=== PATIENT | female | born 1945 | race Hispanic/Latino ===

== ENCOUNTER 2018-11-21 07:57 | Day surgery (SDC) | payer OTHER ==
[~2018-11-21 07:57] MED LIST: SODIUM CHLORIDE 0.9% 1000ML 1,000 ML IV ONE
[2018-11-21] MEDS ORDERED: ROSU20TA31 PO (10:43)
[2018-11-21] MEDS ORDERED: LATA7.5D OP (10:43)
[2018-11-21] MEDS ORDERED: IPRA4AER IH (10:43)
[2018-11-21] MEDS ORDERED: LEVO100T12 PO (10:43)
[2018-11-21] MEDS ORDERED: LISI2.5T2 PO (10:43)
[2018-11-21] MEDS ORDERED: FLUT1BLS3 IH (10:43)
[2018-11-21] MEDS ORDERED: METF-446 PO (10:43)
[2018-11-21] MEDS ORDERED: LORA10CA9 PO (10:43)
[2018-11-21] MEDS ORDERED: CALC1TAB2 PO (10:43)
[2018-11-21] MEDS ORDERED: METO-408 PO (10:43)
[2018-11-21] MEDS ORDERED: PROPOFOL 10 MG/ML 20ML VIAL IV ONE (11:51)
[2018-11-21 12:12] VITALS: BP 91/41
[2018-11-21 12:17] VITALS: BP 110/58
[2018-11-21 12:22] VITALS: BP 108/58
[2018-11-21 12:27] VITALS: BP 112/58
[2018-11-21 12:32] VITALS: BP 135/70
--- NOTE | 2018-11-21 12:37 | NUR ---
dc pt dc home via wc, no distress noted. denies any pain or discomforts. accompanied by spouse
== END 2018-11-21 12:37 | disposition home or self-care (01) ==
LOC: ENDO 07:57 → DAH 07:57 → ENDO 12:37
PROVIDERS: ATTEND Internal Medicine
DX: D12.4 Benign neoplasm of descending colon (principal); D12.3 Benign neoplasm of transverse colon; K57.30 Diverticulosis of large intestine without perforation or abscess without bleeding; K64.0 First degree hemorrhoids; I10 Essential (primary) hypertension; E78.5 Hyperlipidemia, unspecified; E66.01 Morbid (severe) obesity due to excess calories; J45.909 Unspecified asthma, uncomplicated; E11.9 Type 2 diabetes mellitus without complications; E03.9 Hypothyroidism, unspecified; Z80.0 Family history of malignant neoplasm of digestive organs; Z79.899 Other long term (current) drug therapy; Z85.3 Personal history of malignant neoplasm of breast
CPT/HCPCS: 45380; 45385; 82948 ×2; 88305; A4606; J2704; J7030